=== PATIENT | female | born 1975 | race Caucasian/White ===

== ENCOUNTER 2019-05-25 21:30 | Emergency (ER) | payer OTHER ==
[~2019-05-25] VITALS: Ht 15.2 cm; Wt 68.0 kg
== END 2019-05-25 22:58 | disposition home or self-care (01) ==
LOC: ER 21:30
DX: F06.4 Anxiety disorder due to known physiological condition (principal)

== ENCOUNTER → 2020-04-23 16:52 | Outpatient (CLI) | payer OTHER | END | disposition home or self-care (01) | LOC: LAB 16:52 | DX: Z20.828 Contact with and (suspected) exposure to other viral communicable diseases (principal) ==